=== PATIENT | male | born 1995 | race Caucasian/White ===

== ENCOUNTER 2020-08-17 14:27 | Emergency (ER) | payer OTHER ==
[~2020-08-17 14:27] MED LIST: HYDROCODON-ACE1 EAC2 PO; NORCO 10-325 T1 EACH PO; NORCO 5-325 TA1 EACH PO
== END 2020-08-17 17:11 | disposition home or self-care (01) ==
LOC: ER1 14:27
DX: S43.015A Anterior dislocation of left humerus, initial encounter (principal); S43.035A Inferior dislocation of left humerus, initial encounter; F17.200 Nicotine dependence, unspecified, uncomplicated; W18.30XA Fall on same level, unspecified, initial encounter; Y92.009 Unspecified place in unspecified non-institutional (private) residence as the place of occurrence of the external cause
CPT/HCPCS: 23650; 73030; 99152; 99153; 99283; J2704